=== PATIENT | male | born 1935 | race Caucasian/White ===

== ENCOUNTER 2022-01-23 13:34 | Inpatient (IN) | payer MEDICARE ==
[~2022-01-23] VITALS: Ht 170.1 cm; Wt 71.2 kg
[2022-01-23 13:40] VITALS: BP 123/53
[2022-01-23] MEDS ORDERED: Mysoline50 MG PO (14:09)
[2022-01-23] MEDS ORDERED: LISINOPRIL20 MG PO (14:10)
[2022-01-23] MEDS ORDERED: HYDRALAZINE HYD50 MG PO (14:11)
[2022-01-23] MEDS ORDERED: PIOGLITAZONE HC15 MG PO (14:11)
[2022-01-23] MEDS ORDERED: PRAVASTATIN SOD40 MG PO (14:12)
[2022-01-23 14:13] LABS: BASO % 0.8 % (0.0-1.0); EOS # 0.1 10*3/uL (0.0-0.4); EOS % 1.9 % (1.0-4.0); HEMATOCRIT 36.2 % (42.0-52.0); LYMPH # 0.5 10*3/uL (1.3-4.4); LYMPH % 10.3 % (27.0-41.0); MEAN CELL VOLUME 86.8 fl (80.0-94.0); MEAN CORPUSCULAR HGB 28.1 pg (27.0-31.0); MEAN CORPUSCULAR HGB CONC 32.3 g/dl (33.0-37.0); MONO # 0.3 10*3/uL (0.1-1.0); MONO % 7.2 % (3.0-9.0); NEUT # 3.8 10*3/uL (2.3-7.9); NEUT % 79.4 % (47.0-73.0); PLATELET COUNT AUTOMATED 218 10*3/uL (130-400); RED BLOOD COUNT 4.17 10*6/uL (4.50-5.90); RED CELL DISTRI WIDTH 14.1 % (0-14.5); WHITE BLOOD COUNT 4.8 10*3/uL (4.8-10.8)
[2022-01-23] MEDS ORDERED: TAMSULOSIN HCL0.4 MG PO (14:13)
[2022-01-23] MEDS ORDERED: ZETIA10 MG PO (14:14)
[2022-01-23] MEDS ORDERED: JARDIANCE25 MG PO (14:16)
[2022-01-23] MEDS ORDERED: CALAN SR240 MG PO (14:16)
[2022-01-23] MEDS ORDERED: ASPIRIN CHEWABL81 MG PO (14:17)
[2022-01-23] MEDS ORDERED: FENOFIBRATE160 MG PO (14:17)
[2022-01-23] MEDS ORDERED: ZESTORETIC 20-1 EACH PO (14:18)
[2022-01-23] MEDS ORDERED: ONE DAILY FOR1 EAC1 PO (14:19)
[2022-01-23] MEDS ORDERED: FISH OIL 1,3601 EAC1 PO (14:19)
[2022-01-23] MEDS ORDERED: [UNRECOGNIZED DRUG - OTHER] PO (14:23)
[2022-01-23] MEDS ORDERED: SINEMET 25-1001 EACH PO (14:25)
[2022-01-23 14:27] LABS: ALKALINE PHOSPHATASE 67 U/L (45-117); BUN 29 mg/dl (7-24); CHLORIDE 111 mmol/L (98-107); CREATININE 1.24 mg/dL (0.70-1.30); POTASSIUM 3.9 mmol/L (3.5-5.1); SGOT/AST 20 IU/L (3-35); SGPT/ALT 12 U/L (12-78); SODIUM 142 mmol/L (136-145); TOTAL PROTEIN 6.9 gm/dL (6.4-8.2)
[2022-01-23 15:34] LABS: BILIRUBIN Negative (Negative); BLOOD Negative (Negative); CLARITY Clear (Clear); COLOR Yellow (Yellow); GLUCOSE 3+ (Negative); KETONE Negative (Negative); LEUKO ESTERASE Negative (Negative); NITRITE Negative (Negative); UROBILINOGEN 0.2 E.U./dl (0.0-1.0)
[2022-01-23 15:47] LABS: BACTERIA TRACE; RBC 0-2 rbc/hpf (0-2)
[2022-01-23 15:54] VITALS: BP 152/78
[2022-01-23 18:04] VITALS: BP 171/79
[2022-01-23 19:38] VITALS: BP 99/68
[2022-01-23 20:10] VITALS: BP 148/60
[2022-01-24] VITALS: BP 144/59
[2022-01-24 04:49] LABS: ALKALINE PHOSPHATASE 64 U/L (45-117); BUN 29 mg/dl (7-24); CHLORIDE 115 mmol/L (98-107); CHOLESTEROL 139 mg/dL (<200); FREE T4 1.03 ng/dl (0.76-1.46); LDL CHOLESTEROL 86 mg/dL (9-159); SGOT/AST 17 IU/L (3-35); SGPT/ALT 11 U/L (12-78); SODIUM 145 mmol/L (136-145); TOTAL PROTEIN 6.3 gm/dL (6.4-8.2); TRIGLYCERIDES 75 mg/dl (<150)
[2022-01-24 06:11] LABS: BASO # 0.1 10*3/uL (0.0-0.1); BASO % 0.9 % (0.0-1.0); EOS # 0.2 10*3/uL (0.0-0.4); EOS % 2.3 % (1.0-4.0); HEMATOCRIT 34.5 % (42.0-52.0); LYMPH # 0.9 10*3/uL (1.3-4.4); LYMPH % 13.2 % (27.0-41.0); MEAN CELL VOLUME 89.6 fl (80.0-94.0); MEAN CORPUSCULAR HGB 28.3 pg (27.0-31.0); MEAN CORPUSCULAR HGB CONC 31.6 g/dl (33.0-37.0); MEAN PLATELET VOLUME 10.1 fl (9.6-12.3); MONO # 0.6 10*3/uL (0.1-1.0); MONO % 9.2 % (3.0-9.0); NEUT # 4.8 10*3/uL (2.3-7.9); NEUT % 74.1 % (47.0-73.0); PLATELET COUNT AUTOMATED 239 10*3/uL (130-400); RED BLOOD COUNT 3.85 10*6/uL (4.50-5.90); RED CELL DISTRI WIDTH 14.2 % (0-14.5); WHITE BLOOD COUNT 6.5 10*3/uL (4.8-10.8)
[2022-01-24 08:00] VITALS: BP 144/59
[2022-01-24 12:00] VITALS: BP 170/64
[2022-01-24 16:00] VITALS: BP 135/55
[2022-01-24 20:00] VITALS: BP 152/60
[2022-01-25] VITALS: BP 135/56
[2022-01-25 06:05] LABS: CHLORIDE 110 mmol/L (98-107); CREATININE 1.04 mg/dL (0.70-1.30); POTASSIUM 3.7 mmol/L (3.5-5.1); SODIUM 141 mmol/L (136-145)
[2022-01-25 06:08] LABS: BUN 19 mg/dl (7-24)
[2022-01-25 06:10] LABS: BASO # 0.1 10*3/uL (0.0-0.1); BASO % 0.9 % (0.0-1.0); EOS # 0.2 10*3/uL (0.0-0.4); EOS % 3.5 % (1.0-4.0); HEMATOCRIT 33.5 % (42.0-52.0); LYMPH # 0.8 10*3/uL (1.3-4.4); LYMPH % 15.1 % (27.0-41.0); MEAN CELL VOLUME 88.4 fl (80.0-94.0); MEAN CORPUSCULAR HGB CONC 31.6 g/dl (33.0-37.0); MEAN PLATELET VOLUME 9.9 fl (9.6-12.3); MONO # 0.5 10*3/uL (0.1-1.0); MONO % 10.1 % (3.0-9.0); NEUT # 3.8 10*3/uL (2.3-7.9); PLATELET COUNT AUTOMATED 225 10*3/uL (130-400); RED BLOOD COUNT 3.79 10*6/uL (4.50-5.90); RED CELL DISTRI WIDTH 14.1 % (0-14.5); WHITE BLOOD COUNT 5.4 10*3/uL (4.8-10.8)
[2022-01-25 08:00] VITALS: BP 111/42
[2022-01-25 12:00] VITALS: BP 126/47
[2022-01-25] MEDS ORDERED: METOPROLOL SUCC25 M2 PO (13:32)
[2022-01-25 16:00] VITALS: BP 158/63
[2022-01-25 20:00] VITALS: BP 153/55; BP 182/77
[2022-01-26] VITALS: BP 150/68
[2022-01-26 05:21] LABS: BUN 13 mg/dl (7-24); CHLORIDE 113 mmol/L (98-107); CREATININE 1.08 mg/dL (0.70-1.30); POTASSIUM 4.4 mmol/L (3.5-5.1); SODIUM 144 mmol/L (136-145)
[2022-01-26 06:20] LABS: HEMATOCRIT 31.6 % (42.0-52.0); MEAN CELL VOLUME 87.5 fl (80.0-94.0); MEAN PLATELET VOLUME 10.4 fl (9.6-12.3); PLATELET COUNT AUTOMATED 214 10*3/uL (130-400); RED BLOOD COUNT 3.61 10*6/uL (4.50-5.90); RED CELL DISTRI WIDTH 13.8 % (0-14.5); WHITE BLOOD COUNT 4.3 10*3/uL (4.8-10.8)
[2022-01-26 06:49] LABS: MANUAL DIFF REFLEX YES
[2022-01-26 07:18] LABS: PLATELET SUFFICIENCY NORMAL (NORMAL); TOTAL CELLS COUNTED 100 #CELLS
[2022-01-26 07:19] LABS: TOXIC GRANULATION SLIGHT
[2022-01-26 08:06] VITALS: BP 184/75
[2022-01-26 08:30] VITALS: BP 163/64
[2022-01-26 08:45] VITALS: BP 167/69
[2022-01-26 08:59] VITALS: BP 173/75
[2022-01-26 12:00] VITALS: BP 151/65
== END 2022-01-26 12:43 | disposition home or self-care (01) | DRG 378 ==
LOC: ED 13:34 → EDHOLD 17:41 → 4E 17:41
PROVIDERS: Family Medicine; Internal Medicine; Physician Assistant; ADMIT Emergency Medicine; ATTEND Emergency Medicine
PROC: 0DJD8ZZ Inspection of Lower Intestinal Tract, Via Natural or Artificial Opening Endoscopic (ICD-10-PCS; principal; 2022-01-26)
DX: K57.31 Diverticulosis of large intestine without perforation or abscess with bleeding (principal); J90 Pleural effusion, not elsewhere classified; N28.1 Cyst of kidney, acquired; N40.0 Benign prostatic hyperplasia without lower urinary tract symptoms; Z66 Do not resuscitate; I44.0 Atrioventricular block, first degree; D64.9 Anemia, unspecified; E87.8 Other disorders of electrolyte and fluid balance, not elsewhere classified; E83.41 Hypermagnesemia; R81 Glycosuria; G20 Parkinson's disease; R01.1 Cardiac murmur, unspecified; I10 Essential (primary) hypertension; E78.5 Hyperlipidemia, unspecified; E11.65 Type 2 diabetes mellitus with hyperglycemia; R00.1 Bradycardia, unspecified